=== PATIENT | female | born 1975 | race Caucasian/White ===

== ENCOUNTER 2025-09-02 11:01 | Emergency (ER) | payer BC ==
[~2025-09-02] VITALS: Ht 167.6 cm; Wt 67.1 kg
[2025-09-02] MEDS ORDERED: IOHEXOL 350 100 ML INFUS..BTL ONE (11:44)
[2025-09-02 11:48] LABS: PLATELET COUNT (AUTO) 256 K/uL (179-408); RED BLOOD CELL COUNT(AUTO) 4.19 MIL/uL (3.63-4.92); RED CELL DISTRIBUTION WIDTH 12.7 % (12.3-17.7); WHITE BLOOD COUNT (AUTO) 4.7 K/uL (3.8-11.8)
[2025-09-02 11:55] LABS: CREATININE 0.6 mg/dL (0.6-1.3); SODIUM SERUM 134 mmol/L (136-145); UREA NITROGEN, BLOOD 10 mg/dL (7-18)
[2025-09-02 12:00] LABS: ASPARTATE AMINOTRANSFERASE 17 U/L (15-37); TOTAL PROTEIN, SERUM 7.1 g/dL (6.4-8.2)
[2025-09-02] MEDS ORDERED: METOCLOPRAMIDE HCL 10 MG/2 ML VIAL ONE (13:13)
[2025-09-02] MEDS ORDERED: METO-295 PO (13:15)
[2025-09-02] MEDS: METOCLOPRAMIDE HCL 10 MG/2 ML VIAL IV ONE (13:16)
[2025-09-02 13:57] VITALS: BP 113/65
[2025-09-02 14:13] VITALS: BP 113/65; TEMP 98; O2SAT 99
== END 2025-09-02 14:13 | disposition home or self-care (01) ==
LOC: ER 11:09
DX: G43.109 Migraine with aura, not intractable, without status migrainosus (principal); Z88.0 Allergy status to penicillin; Z90.49 Acquired absence of other specified parts of digestive tract; Z90.89 Acquired absence of other organs; Z79.899 Other long term (current) drug therapy
CPT/HCPCS: 99291; 70496; 96374; 80076; 80048; 82962; 85025; 85730; 86850; 86900; 86901; 84484; 84702; 70498; 93005; 70450; J2765; Q9967; A4606; A4663